=== PATIENT | male | born 1985 | race Caucasian/White ===

== ENCOUNTER 2018-03-02 00:39 | Emergency (ER) | END 2018-03-02 04:40 | disposition home or self-care (01) ==

== ENCOUNTER 2018-12-23 21:26 | Emergency (ER) | payer SELFPAY ==
[~2018-12-23] VITALS: Ht 167.6 cm; Wt 85.0 kg
[~2018-12-23 21:26] MED LIST: CEPH-443 PO; DENIES; IBUP-1542 PO; SULF1TAB31 PO
[2018-12-23 21:31] VITALS: BP 107/67; PULSE 54; RESP 22; Ht 167.6 cm; Wt 85.0 kg
== END 2018-12-24 00:56 | disposition left against medical advice (07) ==
LOC: FTE 21:26
DX: Z53.21 Procedure and treatment not carried out due to patient leaving prior to being seen by health care provider (principal)